=== PATIENT | female | born 1985 | race Caucasian/White ===

== ENCOUNTER → 2020-03-07 10:52 | Outpatient (BNVA) | payer OTHER, SELFPAY | PROVIDERS: Family Provider Nurse Practitioner; Visit Provider Nurse Practitioner Women's Health | DX: Z12.39 Encounter for other screening for malignant neoplasm of breast (principal); E28.2 Polycystic ovarian syndrome; B37.9 Candidiasis, unspecified | CPT/HCPCS: 80053; 80061; 83036 ==

== ENCOUNTER 2020-05-08 08:45 | Outpatient (CLI) | payer OTHER, SELFPAY ==
--- NOTE | 2020-05-08 09:00 | MM_ITS ---
WS: [id number] BILATERAL DIGITAL SCREENING MAMMOGRAPHY WITH CAD CLINICAL INFORMATION: breast cancer screening HISTORY: Screening mammogram. No current complaints. COMPARISON: 119 TECHNIQUE: Bilateral CC and MLO views. FINDINGS: The breasts are composed of heterogeneous fibroglandular density tissue, which can limit the detectio n of small underlying mass lesions. No suspicious mass, asymmetry, calcifications, or architectural d istortion. No evidence of malignancy. Vascular calcification. Stable ovoid intramammary lymph node up per outer left breast. MM/[place] [id number] IMPRESSION: BI-RADS: 2-Benign FOLLOW UP: 1 Year Follow-up Recommend return to annual screening mammography.
== END 2020-05-08 08:46 | disposition home or self-care (01) ==
PROVIDERS: Visit Provider Nurse Practitioner Women's Health
DX: Z12.31 Encounter for screening mammogram for malignant neoplasm of breast (principal)
CPT/HCPCS: 77067

== ENCOUNTER → 2023-11-11 11:01 | Outpatient (BNVA) | payer BC, SELFPAY | PROVIDERS: Visit Provider Nurse Practitioner Women's Health | DX: E28.2 Polycystic ovarian syndrome (principal) | CPT/HCPCS: 82306; 82465; 83036; 83718; 83721; 84439; 84443; 84478; 84481; 85025; 87624 ==

== ENCOUNTER 2023-11-19 08:12 | Outpatient (CLI) | payer BC, SELFPAY ==
--- NOTE | 2023-11-19 08:30 | MM_ITS ---
WS: [id number] BILATERAL SCREENING DIGITAL TOMOSYNTHESIS MAMMOGRAM WITH CAD HISTORY: Z12.31 - Encounter for screening mammogram for malignant ... COMPARISON: 05/08/2020, Bilateral CC and MLO views with tomosynthesis and synthetic mammography submitted. Computer aided det ection analyzed. Breast composition: There are scattered areas of fibroglandular density. No suspicious masses, microc alcifications or architectural distortion. Stable asymmetries and calcifications within each breast. MM/[place] [id number] IMPRESSION: BI-RADS: 2-Benign FOLLOW UP: 1 Year Follow-up
== END 2023-11-19 08:13 | disposition home or self-care (01) ==
LOC: RAD 08:13
PROVIDERS: Visit Provider Nurse Practitioner Women's Health
DX: Z12.31 Encounter for screening mammogram for malignant neoplasm of breast (principal); R92.323 Mammographic fibroglandular density, bilateral breasts; N64.89 Other specified disorders of breast
CPT/HCPCS: 77063; 77067; 82306; 82465; 83036; 83718; 83721; 84439; 84443; 84478; 84481; 85025; 87624

== ENCOUNTER → 2023-12-25 11:45 | Outpatient (BNVA) | payer BC, SELFPAY | DX: Z68.43 Body mass index [BMI] 50.0-59.9, adult (principal) | CPT/HCPCS: 80053 ==

== ENCOUNTER → 2024-09-30 10:20 | Outpatient (BNVA) | payer BC, SELFPAY | DX: I10 Essential (primary) hypertension (principal) | CPT/HCPCS: 80053; 80061; 84439; 84443 ==

== ENCOUNTER → 2024-11-15 11:18 | Outpatient (BNVA) | payer BC, SELFPAY | PROVIDERS: Visit Provider Nurse Practitioner Women's Health | DX: N88.9 Noninflammatory disorder of cervix uteri, unspecified (principal) | CPT/HCPCS: 87624 ==

== ENCOUNTER 2024-11-28 09:26 | Outpatient (CLI) | payer BC, SELFPAY ==
--- NOTE | 2024-11-28 09:45 | MM_ITS ---
WS: [id number] DIAGNOSTIC BILATERAL DIGITAL BREAST TOMOSYNTHESIS MAMMOGRAPHY WITH CAD RIGHT breast ultrasound, limited HISTORY: Palpable mass inferior RIGHT breast. COMPARISON: 11/19/2023, 05/08/2020, 05/11/2017 TECHNIQUE: Bilateral craniocaudad, mediolateral oblique, and mediolateral views are submitted with tomosynthesis and SM. Spot compression RIGHT CC and MLO. Computer aided detection utilized. Breast composition: There are scattered areas of fibroglandular density. Markers placed along the inframammary fold of the RIGHT breast. There is no mass associated with the marker. Breast are stable over multiple prior years. There are few small benign calcifications and asymmetries. No distortion. RIGHT breast ultrasound, limited. Ultrasound RIGHT breast is performed near 4:00, 7 cm from the nipple. Patient directed certified real estate appraiser to this area. There is no mass identified. No cystic or solid changes. No distortion or shadowing. MM/MM diag BI tomosynthesis [id number] IMPRESSION: BI-RADS: 2 - Benign. FOLLOW UP: 1 Year Follow-up No mammographic or ultrasound abnormality within the RIGHT breast in the area o f concern.
--- NOTE | 2024-11-28 10:15 | US_ITS ---
WS: [id number] DIAGNOSTIC BILATERAL DIGITAL BREAST TOMOSYNTHESIS MAMMOGRAPHY WITH CAD RIGHT breast ultrasound, limited HISTORY: Palpable mass inferior RIGHT breast. COMPARISON: 11/19/2023, 05/08/2020, 05/11/2017 TECHNIQUE: Bilateral craniocaudad, mediolateral oblique, and mediolateral views are submitted with tomosynthesis and SM. Spot compression RIGHT CC and MLO. Computer aided detection utilized. Breast composition: There are scattered areas of fibroglandular density. Markers placed along the inframammary fold of the RIGHT breast. There is no mass associated with the marker. Breast are stable over multiple prior years. There are few small benign calcifications and asymmetries. No distortion. RIGHT breast ultrasound, limited. Ultrasound RIGHT breast is performed near 4:00, 7 cm from the nipple. Patient directed leather sponger to this area. There is no mass identified. No cystic or solid changes. No distortion or shadowing. US/US breast RT limited* [id number] IMPRESSION: BI-RADS: 2 - Benign. FOLLOW UP: 1 Year Follow-up No mammographic or ultrasound abnormality within the RIGHT breast in the area o f concern.
== END 2024-11-28 09:27 | disposition home or self-care (01) ==
LOC: RAD 09:27
PROVIDERS: Visit Provider Nurse Practitioner Women's Health
DX: Z12.31 Encounter for screening mammogram for malignant neoplasm of breast (principal)
CPT/HCPCS: 76642; 77062; G0279

== ENCOUNTER → 2025-03-29 10:15 | Outpatient (BNVA) | payer BC, SELFPAY | DX: I10 Essential (primary) hypertension (principal) | CPT/HCPCS: 80053; 84443 ==

== ENCOUNTER 2025-04-12 10:15 | Outpatient (CLI) | payer BC, SELFPAY ==
--- NOTE | 2025-04-12 09:30 | FL_ITS ---
[place] barium swallow modifd [id number] REASON FOR EXAM: Difficulty swallowing FLUOROSCOPY TIME: 1min [id number] # OF SPOT FILMS: None TECHNIQUE: Examination was supervised by the speech therapy department. The swallowing of varying consistencies of barium was fluoroscopically monitored and video recorded. FINDINGS: No aspiration or laryngeal vestibule penetration by liquid contrast. No impedance of the barium tablet transit through the thoracic esophagus into the stomach. IMPRESSION: A detailed report of the swallowing will be rendered by the speech therapy department. No aspiration. No esophageal obstruction. [facility]
== END 2025-04-12 10:16 | disposition home or self-care (01) ==
LOC: RAD 10:18
DX: R13.12 Dysphagia, oropharyngeal phase (principal)
CPT/HCPCS: 74230; 92611